=== PATIENT | male | born 1995 | race Caucasian/White ===

== ENCOUNTER → 2020-09-11 | Outpatient (CLI) | payer MEDICAID ==
[~2020-09-11] MED LIST: ACET-1672 PO; AMOX1TAB12; CLIN150C18; NAPR-1071 PO
--- NOTE | 2020-09-11 10:55 | Diagnostic Imaging Report ---
PROCEDURE: MRI lumbar spine. TECHNIQUE: Multiplanar, multisequence MRI of the lumbar spine was performed without contrast. INDICATION: Low back pain. Injured lifting and twisting. COMPARISON: None. FINDINGS: Normal alignment. Vertebral body heights are preserved. Normal bone marrow signal. No abnormal signal in the conus which terminates at L1. Normal morphology of the cauda equina. The visualized pelvis and paravertebral soft tissues are unremarkable. At L4-L5, there is a central disc protrusion which results in [id number] bilateral lateral recess narrowing. There is mild spinal canal narrowing at this level. Disc space height loss also contributes to mild bilateral neural foraminal narrowing. The intervertebral discs are otherwise well-preserved. No substantial facet arthropathy. No other neural impingement. IMPRESSION: Central disc protrusion at L4-L5 results in [id number] bilateral lateral recess narrowing and mild spinal canal narrowing. Intervertebral discs are otherwise well-preserved. No other neural impingement. Dictated by: Dictated on workstation # [id number]
== END ==
LOC: RAD 09:30
PROVIDERS: ATTEND Nurse Practitioner Family
DX: M51.26 Other intervertebral disc displacement, lumbar region (principal); M48.061 Spinal stenosis, lumbar region without neurogenic claudication
CPT/HCPCS: 72148